=== PATIENT | female | born 1955 | race Caucasian/White ===

== ENCOUNTER 2018-10-09 13:35 | Emergency (ER) | payer OTHER ==
[2018-10-09 16:01] VITALS: BP 153/74
[2018-10-09] MEDS ORDERED: Albuterol/Ipratropium NEB.SOL* Albuterol 2.5 MG/Ipratropium 0.5 MG 3 ML INH ONE (16:12)
--- NOTE | 2018-10-09 16:19 | UC ---
Respiratory Complaint HPI - HPI Summary HPI Summary: Pt presents with c/o cough, wheezing and SOB with exertion. - History of Current Complaint Chief Complaint: UCGeneralIllness Stated Complaint: COUGH, SORE THROAT, FEVER Time Seen by Provider: 10/09/18 15:46 Hx Obtained From: Patient ?: No Onset/Duration: Gradual Onset, Lasting Days, Still Present Timing: Constant Severity Initially: Mild Severity Currently: Moderate Pain Intensity: 6 Character: Cough: Nonproductive Aggravating Factors: Exertion, Deep Breaths, Recumbent Position Alleviating Factors: Nothing Associated Signs And Symptoms: Positive: Wheezing, URI, Nasal Congestion - Risk Factors Pulmonary Embolism Risk Factors: Negative Cardiac Risk Factors: Hypertension, Diabetes Pseudomonas Risk Factors: Negative Tuberculosis Risk Factors: Diabetes - Allergies/Home Medications Allergies/Adverse Reactions: Allergies Allergy/AdvReac Type Severity Reaction Status Date / Time amoxicillin [From Augmentin] Allergy Hives Verified 10/09/18 15:58 canagliflozin [From Invokana] Allergy Pain Verified 10/09/18 15:58 clavulanic acid Allergy Hives Verified 10/09/18 15:58 [From Augmentin] Bjkkcht-Joq-Pgb Reductase Allergy Joint Pain Verified 10/09/18 15:57 Inhibitor Home Medications: Home Medications Ezetimibe 10 mg PO DAILY 10/09/18 [History Confirmed 10/09/18] Fenofibrate 48 mg PO DAILY 10/09/18 [History Confirmed 10/09/18] Insulin Glargine,Hum.rec.anlog [Lantus] 10/09/18 [History] Losartan TAB* [Cozaar TAB*] 50 g PO DAILY 10/09/18 [History Confirmed 10/09/18] PMH/Surg Hx/FS Hx/Imm Hx Previously Healthy: Yes Endocrine History: Diabetes Cardiovascular History: Cardiac Disease, Hypertension Respiratory History: Other - sleep apnea - Surgical History Surgical History: Yes Surgery Procedure, Year, and Place: GEE 2003. T&A. BILATERAL EAR TUBES - Family History Known Family History: Positive: Hypertension - Social History Occupation: Employed Full-time Lives: With Family Alcohol Use: Rare Substance Use Type: None Smoking Status (MU): Former Smoker Have You Smoked in the Last Year: No When Did the Patient Quit Smoking/Using Tobacco: 2003 - Immunization History Most Recent Influenza Vaccination: [id number] Review of Systems All Other Systems Reviewed And Are Negative: Yes Constitutional: Positive: Chills, Fatigue Skin: Positive: Negative Eyes: Positive: Negative ENT: Positive: Sinus Congestion Respiratory: Positive: Shortness Of Breath, Cough Cardiovascular: Positive: Negative Gastrointestinal: Positive: Negative Genitourinary: Positive: Negative Motor: Positive: Negative Neurovascular: Positive: Negative Musculoskeletal: Positive: Myalgia Neurological: Positive: Negative Psychological: Positive: Negative Is Patient Immunocompromised?: No Physical Exam Triage Information Reviewed: Yes Appearance: Ill-Appearing Vital Signs: Initial Vital Signs Temp 98.1 F 10/09/18 15:52 Pulse 62 10/09/18 15:52 Resp 21 10/09/18 15:52 BP 153/74 10/09/18 15:52 Pulse Ox 94 10/09/18 15:52 Vital Signs Reviewed: Yes Eye Exam: Normal ENT: Positive: Nasal congestion Dental Exam: Normal Neck exam: Normal Respiratory: Positive: Decreased breath sounds, Wheezing Cardiovascular Exam: Normal Musculoskeletal Exam: Normal Neurological Exam: Normal Psychological Exam: Normal Skin Exam: Normal UC Diagnostic Evaluation - Laboratory O2 Sat by Pulse Oximetry: 94 Respiratory Course/Dx - Differential Dx/Diagnosis Differential Diagnosis/HQI/PQRI: Bronchitis, Influenza Provider Diagnosis: Influenza A Discharge - Sign-Out/Discharge Documenting (check all that apply): Patient Departure All imaging exams completed and their final reports reviewed: No Studies - Discharge Plan Condition: Stable Disposition: HOME Prescriptions: Albuterol 2.5MG/3ML (0.083%)* [Ventolin 2.5 MG/3 ML NEB.KELLEE*] 2.5 mg INH Q4H PRN #1 box PRN Reason: Sob/Wheezing Benzonatate CAP* [Tessalon 100 MG CAP*] 200 mg PO Q8H PRN #30 cap PRN Reason: Cough Patient Education Materials: Influenza (ED) Forms: *Work Release Referrals: Marybeth Silver NP [Primary Care Provider] - If Needed - Billing Disposition and Condition Condition: STABLE Disposition: Home
[2018-10-09 16:21] LABS: Influenza A Molecular POSITIVE (Negative)
== END 2018-10-09 16:43 | disposition home or self-care (01) ==
LOC: UCCORT 13:35
DX: J10.1 Influenza due to other identified influenza virus with other respiratory manifestations (principal); E11.9 Type 2 diabetes mellitus without complications; I10 Essential (primary) hypertension; Z88.0 Allergy status to penicillin; Z88.8 Allergy status to other drugs, medicaments and biological substances; Z79.4 Long term (current) use of insulin; Z79.899 Other long term (current) drug therapy; Z87.891 Personal history of nicotine dependence
CPT/HCPCS: 99212; A9270-GY; G0463

== ENCOUNTER 2018-12-26 10:15 | Emergency (ER) | payer BC, OTHER ==
[2018-12-26 10:43] VITALS: BP 147/66
--- NOTE | 2018-12-26 10:52 | UC ---
General HPI - HPI Summary HPI Summary: manager facility notes reviewed -Bottom left side dental ache. Started Thursday. Not able to get into dentist. Feels swelling. Pleasant 63 yo female c/o progressive pain and swelling at and just below ( lingual) L lower 2nd premolar, since apprx Thursday, today is Thursday. Called Dentist office on Thursday, but was closed, plans to call tomorrow but wants to get started on abx sooner. Is diabetic, has home meter. Is scheduled for gastric bypass surgery on 13 Jan 2019. Currently without GI issues, has taken acetaminophen with some relief, ibuprofen helps better but GI challenges at times. GI ok, baseline constipation, but improves with activia. No fever / chills. No recent illness. No rash. Wears full dentures upper, no issues nor pain c/o. - History of Current Complaint Chief Complaint: UCDentalProblem Stated Complaint: DENTAL COMPLAINT Time Seen by Provider: 12/26/18 10:51 Hx Obtained From: Patient Pain Intensity: 6 - Allergy/Home Medications Allergies/Adverse Reactions: Allergies Allergy/AdvReac Type Severity Reaction Status Date / Time amoxicillin [From Augmentin] Allergy Hives Verified 12/26/18 10:37 canagliflozin [From Invokana] Allergy Pain Verified 12/26/18 10:37 clavulanic acid Allergy Hives Verified 12/26/18 10:37 [From Augmentin] Zjgkttg-Sdd-Nxr Reductase Allergy Joint Pain Verified 12/26/18 10:37 Inhibitor Home Medications: Home Medications Acetaminophen [Tylenol Extra Strength] 1,000 mg PO ONCE PRN 12/26/18 [History Confirmed 12/26/18] Ergocalciferol (Vitamin D2) [Vitamin D2] 1 tab PO WEEKLY 12/26/18 [History Confirmed 12/26/18] [place]-3 Fatty Acids/Fish Oil [Fish Oil 1200 mg] 1 cap PO DAILY 12/26/18 [ History Confirmed 12/26/18] metFORMIN* [Glucophage 1000 MG TAB *] 1,000 mg PO BID 12/26/18 [History Confirmed 12/26/18] PMH/Surg Hx/FS Hx/Imm Hx Previously Healthy: Yes - see below and see hpi - Surgical History Surgical History: Yes Surgery Procedure, Year, and Place: HYSTERECTOMY. T&A. EAR TUBES - Family History Known Family History: Positive: Hypertension - Social History Alcohol Use: None Substance Use Type: None Smoking Status (MU): Former Smoker Have You Smoked in the Last Year: No When Did the Patient Quit Smoking/Using Tobacco: 2004 - Immunization History Most Recent Influenza Vaccination: [id number] Review of Systems All Other Systems Reviewed And Are Negative: Yes Constitutional: Positive: Negative Skin: Positive: Other - see hpi Eyes: Positive: Negative ENT: Positive: Other - see hpi Respiratory: Positive: Negative Cardiovascular: Positive: Negative Gastrointestinal: Positive: Negative Genitourinary: Positive: Negative Motor: Positive: Negative Neurovascular: Positive: Negative Musculoskeletal: Positive: Negative Neurological: Positive: Negative Psychological: Positive: Negative Is Patient Immunocompromised?: No Physical Exam Triage Information Reviewed: Yes Appearance: Well-Appearing, Well-Nourished Vital Signs: Initial Vital Signs Temp 97.2 F 12/26/18 10:37 Pulse 53 12/26/18 10:37 Resp 17 12/26/18 10:37 BP 147/66 12/26/18 10:37 Pulse Ox 97 12/26/18 10:37 Vital Signs Reviewed: Yes Eye Exam: Normal ENT: Positive: TM dull, Other - see dental below, remainder oroph grossly benign. Upper denture in place. Dental Exam: Other - + keith and discoloration noted to 2nd lower premolar. there is some swelling not overly fluctuant lingual portion. Nontender buchal gum. There is scattered gingivitis in the affected tooth, and elsewhere. Tooth is particularly tender to light percussion. h/c not tested. Course/Dx - Course Course Of Treatment: Blood glucose fs this am 163mg / dl, per pt Reviewed meds / allergies / pmh Reviewed coa / tx plan with pt. Questions as posed answered to the best of my ability. Reviewed GI precautions, echo in light of abx (clindamycin). - Diagnoses Provider Diagnosis: Dental abscess, Gingivitis Discharge - Sign-Out/Discharge Documenting (check all that apply): Patient Departure All imaging exams completed and their final reports reviewed: No Studies - Discharge Plan Condition: Stable Disposition: HOME Prescriptions: Chlorhexidine MW 0.12% 473ML* [Peridex Mouth Wash 0.12%*] 15 ml .SEE ORDER DAILY WITH MEAL #1 btl Clindamycin HCl 300 mg PO Q8H #30 capsule Patient Education Materials: Dental Abscess (ED), Gingivitis (ED) Referrals: Marybeth Silver NP [Primary Care Provider] - Additional Instructions: Drink plenty of water. Try to avoid taking antibiotic on completely empty stomach, but not with full meal. Please follow up with your dentist in about one week. Sooner for worse or new problems. Eat yogurt and / or probiotic daily, especially while taking antibiotics. Check your blood glucose frequently, especially while you are dealing with an infection. - Billing Disposition and Condition Condition: STABLE Disposition: Home
== END 2018-12-26 11:23 | disposition home or self-care (01) ==
LOC: UCCORT 10:15
DX: K04.7 Periapical abscess without sinus (principal); K05.10 Chronic gingivitis, plaque induced; E11.9 Type 2 diabetes mellitus without complications; Z88.1 Allergy status to other antibiotic agents; Z88.0 Allergy status to penicillin; Z88.8 Allergy status to other drugs, medicaments and biological substances; Z87.891 Personal history of nicotine dependence
CPT/HCPCS: 99212; G0463

== ENCOUNTER 2019-07-08 08:20 | Emergency (ER) | payer BC ==
--- OUTSIDE RECORDS SUMMARY | 2019-07-08 08:30 | XMS REPORT | Summary of Care ---
:1955 Author Organization [facility] Address [address] [place] [address] Care Team Providers Name Role Phone Carrie Silver FAGOTER Primary Care Provider Encounter Details Date Type Department Care Team Description 06/29/2019 Hospital Encounter [facility] Clinical Pathology at [facility] [address] [place] [id number] Allergies Active Allergy Reactions Severity Noted Date Comments Amoxicillin-Pot Other (See Comments) Medium 06/19/2017 Blisters at bottom Clavulanate of feet Statins Other (See Comments) 12/05/2016 Myalgias per pt documented as of this encounter (statuses as of 06/30/2019) Medications Medication Sig Dispensed Refills Start Date End Date Status aspirin 81 MG tablet Take 81 mg by 0 Active mouth daily ezetimibe (ZETIA) 10 Take 1 tablet by 90 tablet 3 05/06/2019 Active MG tablet mouth daily 0 losartan (COZAAR) 50 Take 1 tablet by 180 tablet 3 05/06/2019 Active MG tabletIndications: mouth Two Times Hypertension Daily Indications: High Blood Pressure Disorder magnesium hydroxide Take 30 mLs by 360 mL 3 05/06/2019 Active (MILK OF MAGNESIA) mouth daily as 400 MG/5ML suspension needed for Constipation omeprazole (PRILOSEC) Take 1 capsule by 90 capsule 3 05/06/2019 Active 20 MG capsule mouth daily vitamin B-12 Take 0.5 tablets 90 tablet 3 05/06/2019 Active (CYANOCOBALAMIN) 100 by mouth daily MCG tablet vitamin D Take 1 capsule by 6 capsule 3 06/09/2019 Active (ERGOCALCIFEROL) mouth every 14 30043 units (fourteen) days capsuleIndications: Hypovitaminosis D documented as of this encounter (statuses as of 06/30/2019) Active Problems Problem Noted Date Family history of early CAD 05/06/2019 S/P bariatric surgery 02/01/2019 Overview: 01/13/19 Jerica n Y done no Hyperglycemia and lost 21 lbs in wt and 3 " in waist line Bradycardia on Bystolic marked -- adjusting dos e BP down. Pedal edema 07/30/2018 Statin intolerance 07/30/2018 Essential hypertension 06/19/2017 Overview: TLC discussed at length with patient and written instructions reviewed and provided to help lose at least at least 1 pound in weight per week. On Bystolic and Spironolactone. Poor compliance 06/19/2017 Overview: With TLC to lose weight and to take Lovaza for large capsule size Dyslipidemia 03/17/2017 Overview: Morbid obesity with dyslipidemia-- Robert TG's and low HDL-C. TLC discussed at length with patient and written instructions reviewed and provided to help lose at least at least 1 pound in weight per week. on feniofbrates Reported family history of early sudden deaths 03/17/2017 Overview: Father and relatives. Family history of aneurysm of blood vessel of brain 03/17/2017 Overview: Apparently there is such history in her blood relatives -- no definite confirmation by angio or scans forth coming Morbid obesity with BMI of 40.0-44.9, adult 03/17/2017 Overview: TLC discussed at length with patient and written instructions reviewed and provided to help lose at least at least 1 pound in weight per week. ILDIA (obstructive sleep apnea) 03/17/2017 Overview: Using CPAP Not using CPAP-- sleeping better without it , she indicated and hates that gadget ! Family history of brain aneurysm 03/10/2017 Pain of left thumb 02/15/2013 documented as of this encounter (statuses as of 06/30/2019) Resolved Problems Problem Noted Date Resolved Date Pre-operative cardiovascular examination 07/31/2017 02/01/2019 Overview: Pre colonoscopy cardiac evaluation. OK. IDDM (insulin dependent diabetes mellitus) 03/17/2017 05/06/2019 Overview: With +ve FH and morbid Obesity. documented as of this encounter (statuses as of 06/30/2019) Social History Tobacco Use Types Packs/Day Years Used Date Former Smoker Smokeless Tobacco: Never Used Alcohol Use Drinks/Week oz/Week Comments No Sex Assigned at Date Recorded Not on file Job Start Date Occupation Industry Not on file Not on file Not on file Travel History Travel Start Travel End No recent travel history available. documented as of this encounter Last Filed Vital Signs Not on filedocumented in this encounter Plan of Treatment Date Type Specialty Care Team Description 08/30/2019 Office Visit Cardiology Esperanza Hyman MD [address] [place] [address] [phone] Name Type Priority Associated Diagnoses Date/Time Vitamin B1 Lab Routine 06/29/2019 9:57 AM EST Name Type Priority Associated Diagnoses Order Schedule Vitamin B1 Lab Routine Once for 1 Occurrences starting 06/29/2019 until 06/29/2019 Health Maintenance Due Date Last Done Comments Hepatitis C Screening (B. 1955 [id number]) MMR Vaccines (1 of 1 - Standard 1958 series) Pneumococcal Vaccine: Pediatrics 1963 (0 to 5 Years) and At-Risk Patients (6 to 64 Years) (1 of 1 - PPSV23) Hepatitis B Vaccines (1 of 3 - 1976 Risk 3-dose series) Cervical Cancer Screening 5 years 1978 Breast Cancer Screening 2 years 2007 Colon Cancer Screening 10 yrs 2007 Zoster Vaccines (1 of 2) 2007 DTaP,Tdap,and Td Vaccines (2 - 05/28/2016 04/30/2016 Tdap) Influenza Vaccine 05/24/2019 Pneumococcal Vaccine: 65+ Years (1 2022 of 2 - PCV13) HIV Screening Completed 12/01/2011 HIB Vaccines Aged Out No longer eligible based on patient's age to complete this topic Hepatitis A Vaccines Aged Out No longer eligible based on patient's age to complete this topic IPV Vaccines Aged Out No longer eligible based on patient's age to complete this topic Varicella Vaccines Aged Out No longer eligible based on patient's age to complete this topic documented as of this encounter Procedures Procedure Name Priority Date/Time Associated Comments Diagnosis VITAMIN D 25 HYDROXY, Routine 06/29/2019 10:10 Results for this TOTAL AM EST procedure are in the results section. TOTAL FE BINDING Routine 06/29/2019 9:57 Results for this CAPACITY AM EST procedure are in the results section. CBC Routine 06/29/2019 9:57 Results for this AM EST procedure are in the results section. HEMOGLOBIN A1C Routine 06/29/2019 9:57 Results for this AM EST procedure are in the results section. FERRITIN LEVEL Routine 06/29/2019 9:57 Results for this AM EST procedure are in the results section. VITAMIN B12 Routine 06/29/2019 9:57 Results for this AM EST procedure are in the results section. LIPID PANEL Routine 06/29/2019 9:57 Results for this AM EST procedure are in the results section. COMPREHENSIVE Routine 06/29/2019 9:57 Results for this METABOLIC PANEL AM EST procedure are in the results section. documented in this encounter Results Vitamin D 25 Hydroxy, Total (06/29/2019 10:10 AM EST) Vitamin D 25 Hydroxy, 28 (L) >30 ng/mL [facility] TOTAL Clin Pathology Specimen Serum Performing Organization Address [facility]/Zipcode Phone Number [facility] CLINICAL PATHOLOGY [address] [place] [address] [facility] Clin [address] [place] [address] Pathology Hemoglobin A1c (06/29/2019 9:57 AM EST) Hemoglobin A1C 5.5 4.0 - 6.0 % [facility] Comment: Univ Clin (NOTE) Pathology <5.7% Average risk of diabetes(ADA) 5.7-6.4% Increased risk of diabetes(ADA) >/= 6.5% Diagnostic for diabetes(ADA) Estimated Avg 111 <126 mg/dL [facility] Glucose Univ Clin Pathology Specimen Whole Blood Performing Organization Address City/[facility] Phone Number [facility] CLINICAL PATHOLOGY [address] [place] [address] [phone] [facility] Clin [address] [place] [address] Pathology Iron and TIBC (06/29/2019 9:57 AM EST) Iron 76 37 - 145 ug/dl [facility] Clin Pathology Transferrin Serum 212 200 - 360 mg/dL [facility] Clin Pathology Total Fe Bind Cap 294 228 - 428 ug/dl [facility] Clin Pathology % Fe Saturation 25.9 20 - 55 % [facility] Clin Pathology Specimen Plasma Performing Organization Address [facility] Phone Number [facility] CLINICAL PATHOLOGY [address] [place] [address] [facility] Clin [address] [place] [address] Pathology Lipid panel (06/29/2019 9:57 AM EST) Cholesterol 187 <200 mg/dL [facility] Clin Pathology Triglyceride 111 <150 mg/dL [facility] Clin Pathology HDL Cholesterol 40 (L) >50 mg/dL [facility] Clin Pathology LDL Cholesterol 125 (H) <100 mg/dL [facility] Clin Pathology VLDL Cholesterol 22 16 - 42 mg/dl [facility] Clin Pathology Non HDL Cholesterol 147 (H) <130 mg/dL [facility] Clin Pathology Specimen Plasma Performing Organization Address [facility] Phone Number [facility] CLINICAL PATHOLOGY [address] [place] [address] [facility] Clin [address] [place] [address] Pathology Ferritin Level (06/29/2019 9:57 AM EST) Ferritin 264 (H) 13 - 150 ng/ml [facility] Clin Pathology Specimen Plasma Performing Organization Address [facility] Phone Number [facility] CLINICAL PATHOLOGY [address] [place] [address] [facility] Clin [address] [place] [phone] Pathology Comprehensive Metabolic Panel (06/29/2019 9:57 AM EST) Albumin 4.4 3.5 - 5.2 g/dL [facility] Clin Pathology Bilirubin, Total 0.7 <1.2 mg/dL [facility] Clin Pathology Calcium 10.1 8.8 - 10.2 mg/dL [facility] Clin Pathology Chloride 103 98 - 107 mmol/L [facility] Clin Pathology Creatinine 0.77 0.50 - 0.90 [facility] mg/dL Univ Clin Pathology Glucose 96 70 - 140 mg/dL [facility] Clin Pathology Alkaline Phosphatase 101 35 - 104 U/L [facility] Clin Pathology Potassium 4.5 3.4 - 5.1 mmol/L [facility] Clin Pathology Total Protein 6.6 6.4 - 8.3 g/dL [facility] Clin Pathology Sodium 141 136 - 145 mmol/L [facility] Clin Pathology AST/SGO 20 <32 U/L [facility] Clin Pathology Blood Urea Nitrogen 17 8 - 23 mg/dL [facility] Clin Pathology Osmolality, Angelo 293 275 - 300 [facility] mosm/kg Univ Clin Pathology BUN/Cre Ratio 22 [facility] Clin Pathology Bicarbonate 28 22 - 29 mmol/L [facility] Clin Pathology ALT/SGP 24 <33 U/L [facility] Clin Pathology Anion Gap 10 8 - 15 mmol/L [facility] Clin Pathology A/G Ratio 2.0 [facility] Clin Pathology GFR Non 88 >60 [facility] Greek 2008 CDK-EPI mL/min/1.73m2 Univ Clin Pathology GFR >90 >60 [facility] 2009 CKD-EPI mL/min/1.73m2 [facility] Clin Pathology Specimen Plasma Performing Organization Address City/State/[facility] Phone Number [facility] CLINICAL PATHOLOGY [address] [place] [address] [facility] Clin [address] [place] [address] Pathology CBC (06/29/2019 9:57 AM EST) White Blood Cell 6.4 4 - 10 10*3/uL [facility] Clin Pathology Red Blood Cell 4.22 4.1 - 5.3 [facility] 10*6/uL [facility] Clin Pathology Hemoglobin 13.7 11.5 - 15.5 [facility] g/dL [facility] Clin Pathology Hematocrit 41.4 36 - 45 % [facility] Clin Pathology Mean Cell Volume 98.1 (H) 80 - 96 fL [facility] Clin Pathology Mean Cell Hemoglobin 32.5 27 - 33 pg [facility] Clin Pathology Mean Cell Hgb Conc 33.1 32.0 - 36.0 [facility] g/dL Univ Clin Pathology Red Cell Dist Width 12.9 11.5 - 14.5 % [facility] Clin Pathology Platelet Count 234 150 - 400 [facility] 10*3/uL Univ Clin Pathology Specimen EDTA Whole Blood Performing Organization Address City/[facility]/Zipcode Phone Number [facility] CLINICAL PATHOLOGY [address] [place] [address] [phone] [facility] Clin [address] [place] [address] Pathology Vitamin B12 (06/29/2019 9:57 AM EST) Vitamin B12 715 211 - 946 pg/ml [facility] Clin Pathology Specimen Plasma Performing Organization Address City/[facility] Phone Number [facility] CLINICAL PATHOLOGY [address] [place], [place] [id number] [phone] [facility] Clin [address] [place] [address] Pathology documented in this encounter
--- OUTSIDE RECORDS SUMMARY | 2019-07-08 08:30 | XMS REPORT | Continuity of Care Document ---
:1955 External Reference #:[id number] Author Name Gema Whitten MD Address [address] [place] [address] Problems Active Problems Provider Date Benign essential hypertension Edelmira Kim M.D. Onset: 05/22/2016 Pure hypercholesterolemia Edelmira Kim M.D. Onset: 05/22/2016 Social History Type Date Description Comments Sex Unknown Cigarette Use Pack Years - 20 Tobacco Use Start: Unknown End: Former Cigarette Smoker quit 2003 Unknown 1 Pack Daily ETOH Use Denies alcohol use Tobacco Use Start: Unknown End: Patient is a former Unknown smoker Recreational Drug Use Denies Drug Use Exercise Type/Frequency Exercises sporadically will restart water aroebics Allergies, Adverse Reactions, Alerts Active Allergies Reaction Severity Comments Date Statins MUSCLE PAIN AND WEAKNESS 12/25/2015 Clavulanate blisters 04/13/2017 Augmentin 02/26/2018 Inactive Allergies NKDA 09/24/2015 Medications Active Medications SIG Qnty Indications Ordering Date Provider Losartan Potassium Take 1 Tablet By 180tabs I10 Gema Whitten, 06/02/2018 Mouth bid 50mg Tablets Cpap Cpap 10jnD1G with 1units G47.33 David Kent, 10/15/2016 Device modem, heated humidity and related supplies, ashley 99mos Miralax 17 grams in 8 oz of Unknown Powder fluid every day as needed constipation Fusion Plus 1 by mouth qd-otc Unknown Capsules History Medications Bystolic 1 by mouth every Carrie Silver NP 02/07/2019 - 5mg Tablets other day 03/01/2019 Immunizations CPT Code Status Date Vaccine Lot # [id number] Given 06/06/2019 Influenza Vac, Quadrivalent, Split, 0.5mL Dosage, Im Use 37025 Given 10/26/2018 Pneumococcal 23 Immunization Adult Or [id number] Immunosuppressed Patient 11280 Given 07/01/2018 Influenza Vac, Quadrivalent, Split, 0.5mL Dosage, Im Use 33264 Given 05/24/2016 Afluria Or Fluvirin Flu Vac Intramuscular 06357 Given 04/30/2016 Immunization Td 7 Yrs Or Older 50234 Given 06/07/2015 Influenza Vac, Quadrivalent, Split, 0.5mL Dosage, [id number] Im Use 88152 Refused 02/07/2019 Shingrix (Shingles) Zoster Vaccine HZV, Recombinant , Subunit, Adj Vital Signs Date Vital Result Comment 07/01/2019 8:19am Weight 195.00 lb Heart Rate 60 /min BP Systolic 132 mmHg BP Diastolic 72 mmHg Height 63.5 inches 5'3.50" BMI (Body Mass Index) 34.0 kg/m2 05/27/2019 7:28am Body Temperature 97.4 F Weight 204.00 lb Heart Rate 62 /min BP Systolic 128 mmHg BP Diastolic 76 mmHg Height 63.5 inches 5'3.50" O2 % BldC Oximetry 98 % BMI (Body Mass Index) 35.6 kg/m2 Results Test Acquired Date Facility Test Result H/L Range Note Laboratory test finding 01/06/2019 [facility] 0.91 uIU/mL 0.35-4.94 Procedures Date Code Description Status 01/06/2019 26144 Electrocardiogram Complete Completed 11/12/2018 079273101 Bone Mineral Density Test Completed 02/06/2018 [id number] Mammogram Completed 08/27/2017 [id number] Colonoscopy Completed 10/11/2016 [id number] Mammogram Completed 11/29/2008 [id number] Colonoscopy Completed Medical Devices Description No Information Available Encounters Type Date Location Provider Dx Diagnosis Office Visit 05/27/2019 Jose F Raymond Lori A, G47.33 Obstructive sleep 7:20a [employer] SU[employer] OFFICER apnea (adult) (pediatric) B37.0 Candidal stomatitis J32.9 Chronic sinusitis, unspecified H66.93 Otitis media, unspecified, bilateral J45.991 Cough variant asthma Office Visit 03/01/2019 8:15a Gema Paredes MD E11.40 Type 2 diabetes mellitus with diabetic neuropathy, unsp E78.00 Pure hypercholesterolemia, unspecified I10 Essential (primary) hypertension E66.9 Obesity, unspecified Z68.39 Body mass index (BMI) 39.0-39.9, adult Office Visit 02/07/2019 3:00p Carrie Mcgrath NP E66.01 Morbid ( severe) obesity due to excess calories I10 Essential (primary) hypertension Z68.41 Body mass index (BMI) 40.0-44.9, adult Office Visit 01/11/2019 10:00a Gema Paredes MD E11.40 Type 2 diabetes mellitus with diabetic neuropathy, unsp E78.00 Pure hypercholesterolemia, unspecified I10 Essential (primary) hypertension E66.01 Morbid (severe) obesity due to excess calories Z68.41 Body mass index (BMI) 40.0-44.9, adult Office Visit 01/06/2019 2:00p Carrie Mcgrath NP E66.01 Morbid ( severe) obesity due to excess calories Z68.42 Body mass index (BMI) 45.0-49.9, adult Z01.818 Encounter for other preprocedural examination K02.9 Dental caries, unspecified Assessments Date Code Description Provider 07/01/2019 E11.40 Type 2 diabetes mellitus with diabetic Gema Whitten MD neuropathy, unspecifi 07/01/2019 E78.00 Pure hypercholesterolemia, unspecified Gema Whitten MD 07/01/2019 I10 Essential (primary) hypertension Gema Whitten MD 07/01/2019 E66.9 Obesity, unspecified Gema Whitten MD 07/01/2019 Z68.34 Body mass index (BMI) 34.0-34.9, adult Gema Whitten MD 05/27/2019 G47.33 Obstructive sleep apnea syndrome Lolis Kohler [employer] C[employer]ER SUPPORT OFFICER 05/27/2019 B37.0 Candidal stomatitis Lolis Kohler NP 05/27/2019 J32.9 Chronic sinusitis, unspecified Lolis Kohler I[employer] C[employer]ER SUPPORT OFFICER 05/27/2019 H66.93 Otitis media, unspecified, bilateral Lolis Kohler, I[employer] C[employer]ER SUPPORT OFFICER 05/27/2019 J45.991 Cough variant asthma Lolis Kohler I[employer] CUSTOMER SUPPORT OFFICER 03/01/2019 E11.40 Type 2 diabetes mellitus with diabetic Gema Whitten MD neuropathy, unspecifi 03/01/2019 E78.00 Pure hypercholesterolemia, unspecified Gema Whitten MD 03/01/2019 I10 Essential (primary) hypertension Gema Whitten MD 03/01/2019 E66.9 Obesity, unspecified Gema Whitten MD 03/01/2019 Z68.39 Body mass index (BMI) 39.0-39.9, adult Gema Whitten MD 02/07/2019 E66.01 Morbid (severe) obesity due to excess Carrie Silver NP calories 02/07/2019 I10 Essential (primary) hypertension Carrie Silver NP 02/07/2019 Z68.41 Body mass index (BMI) 40.0-44.9, adult Carrie Silver NP 01/11/2019 E11.40 Type 2 diabetes mellitus with diabetic Gema Whitten MD neuropathy, unspecifi 01/11/2019 E78.00 Pure hypercholesterolemia, unspecGema Peguero MD 01/11/2019 I10 Essential (primary) hypertension Gema Whitten MD 01/11/2019 E66.01 Morbid (severe) obesity due to excess Gema Whitten MD calories 01/11/2019 Z68.41 Body mass index (BMI) 40.0-44.9, adult Gema Whitten MD 01/06/2019 E66.01 Morbid (severe) obesity due to excess Carrie Silver NP calories 01/06/2019 E78.00 Pure hypercholesterolemia, unspecified [facility] 01/06/2019 Z68.42 Body mass index (BMI) 45.0-49.9, adult Carrie Silver NP 01/06/2019 Z01.818 Encounter for other preprocedural examination Carrie Silver NP 01/06/2019 K02.9 Dental caries, unspecified Carrie Silver NP 01/06/2019 Z01.818 Encounter for other preprocedural examination [facility] Plan of Treatment Future Appointment(s):06/01/2020 7:20 am - Lolis Kohler I[employer] CUST[employer]ER SUPPORT OFFICER at [facility] MD07/01/2019 - Gema Whitten MDE11.40 Type 2 diabetes mellitus with diabetic neuropathy, unspecifiComments:Patient has done extremely well since I bariatric surgery. She has lost 69 pounds altogether and has been able to come off of all her diabetic medications. Her HbA1c is in 5 range. She is continuingto watch her diet and has been exercising with water aerobics. I have encouraged her to continue todo so. Remain off of all the medications in if she gains weight. Again, she might have to restart the medicine. Continue to monitor blood sugars periodically. She can follow up with PCP and if needarises in the future. I'll be happy to see her.E78.00 Pure hypercholesterolemia, unspecifiedComments:Patient also has been off of cholesterol medicine. In the past, could not tolerate statins, but wastreated with Zetia now her LDL is within normal limits. Goal of LDL was discussed with her.I10 Essential (primary) hypertensionComments:BP mildly high, will cont current Rx and check BP qwk and call me with results. Eliminate salt from diet.E66.9 Obesity, pnrurycieqsB80.34 Body mass index (BMI) 34.0-34.9, adultComments:5A's for Obesity Counseling1. ASSESS: Patient presents with a BMI of 34.0, would like to discuss weight loss options.2. ADVISE: Discussed senior living complications of obesity in particular increased riskfor development of diabetes and heat disease as well as the many health benefits that come with a healthy BMI.3. AGREE: Goal is 1 pound or better per week weight loss. The patient understands and agrees to the plan outlined today.4. ASSIST: Reduce caloric intake, reduce proportion of carbohydrates indiet, establish daily exercise pattern, keep food log.5. ARRANGE: Follow up scheduled in PCP's office to assess and adjust treatment plan if needed.Time spent counseling the patient on obesity is 15 minutes. Obesity Screening Completed (G0447) Functional Status Description No Information Available Mental Status Description No Information Available Referrals Refer to Reason for Referral Status Appt Date Podiatry Closed 06/09/2019 Tracking
--- OUTSIDE RECORDS SUMMARY | 2019-07-08 08:30 | XMS REPORT | Continuity of Care Document ---
:1955 External Reference #:[id number] Author Name Lolis Kohler NP (transmitted by agent of provider David Kent) Address [address] [place] [address] Problems Active Problems Provider Date Benign essential [...] 06/02/2018 Mouth bid 50mg Tablets Cpap Cpap 89szD3T with 1units G47.33 David Kent, 10/15/2016 Device modem, heated humidity and related supplies, ashley 99mos Miralax 17 grams in 8 oz of Unknown Powder fluid every day as needed constipation Flintstones 2 by mouth once a Unknown Complete day occasionally 60mg Chewtabs Vitamin B12 1 by mouth every day Unknown 3000mcg Tablets Sub History Medications Bystolic 1 by mouth every Carrie Silver NP 02/07/2019 - 5mg Tablets other day 03/01/2019 Immunizations CPT Code Status Date Vaccine Lot # [id number] Given 10/26/2018 Pneumococcal 23 Immunization Adult Or [id number] Immunosuppressed Patient 83969 Given 07/01/2018 Influenza Vac, Quadrivalent, Split, 0.5mL Dosage, [place] Use 50031 Given 05/24/2016 Afluria Or Fluvirin Flu Vac Intramuscular 74194 Given 04/30/2016 Immunization Td 7 Yrs Or Older 77453 Given 06/07/2015 Influenza Vac, Quadrivalent, Split, 0.5mL Dosage, [id number] Im Use 37213 Refused 02/07/2019 Shingrix (Shingles) Zoster Vaccine HZV, Recombinant , Subunit, Adj Vital Signs Date Vital Result Comment 05/27/2019 7:28am Body Temperature 97.4 F Weight 204.00 lb Heart Rate 62 /min BP Systolic 128 mmHg BP Diastolic 76 mmHg Height 63.5 inches 5'3.50" O2 % BldC Oximetry 98 % BMI (Body Mass Index) 35.6 kg/m2 03/01/2019 8:09am Weight 225.00 lb Heart Rate 50 /min BP Systolic 128 mmHg BP Diastolic 70 mmHg Height 63.5 inches 5'3.50" BMI (Body Mass Index) 39.2 kg/m2 Results Test Date Facility Test Result H/L Range Note Laboratory test finding 01/06/2019 [facility] 0.91 uIU/mL 0.35-4.94 Procedures Date Code Description Status 01/06/2019 93844 Electrocardiogram Complete Completed 11/12/2018 [id number] Bone Mineral Density Test Completed 02/06/2018 [id number] Mammogram Completed 08/27/2017 [id number] Colonoscopy Completed 10/11/2016 [id number] Mammogram Completed 11/29/2008 [id number] Colonoscopy Completed Medical Devices Description No Information Available Encounters Type Date Location Provider Dx Diagnosis Office Visit 03/01/2019 Gema Paredes MD E11.40 Type 2 diabetes 8:15a mellitus with diabetic neuropathy, unsp E78.00 Pure [...] caries, unspecified Assessments Date Code Description Provider 05/27/2019 G47.33 Obstructive sleep apnea syndrome Lolis Kohler NP 05/27/2019 B37.0 Candidal stomatitis Lolis Kohler NP 05/27/2019 J32.9 Chronic sinusitis, unspecified Lolis Kohler, ELECTRONIC DEVELOPMENT TECHNICIAN 05/27/2019 H66.93 Otitis media, unspecified, bilateral Lolis Kohler ELECTRONIC DEVELOPMENT TECHNICIAN 05/27/2019 J45.991 Cough variant asthma Lolis Kohler NP 03/01/2019 E11.40 Type 2 diabetes mellitus with [...] MD neuropathy, unspecifi 01/11/2019 E78.00 Pure hypercholesterolemia, unspecified Gema Whitten MD 01/11/2019 I10 Essential (primary) hypertension Gema Whitten MD 01/11/2019 E66.01 Morbid (severe) obesity due to excess Gema Whitten MD calories 01/11/2019 Z68.41 Body mass index (BMI) 40.0-44.9, adult Gema Whitten MD 01/06/2019 E66.01 Morbid (severe) obesity due to excess Carrie Silver NP calories 01/06/2019 E78.00 Pure hypercholesterolemia, unspecified [facility] 01/06/2019 Z68.42 Body mass index (BMI) 45.0-49.9, adult Carrie Silver NP 01/06/2019 Z01.818 Encounter for other preprocedural examination Carrie Silver NP 01/06/2019 K02.9 Dental caries, unspecified Carrie Silver NP 01/06/2019 Z01.818 Encounter for other preprocedural examination [facility] Plan of Treatment Future Appointment(s):06/01/2020 7:20 am - Lolis Kohler NP at [facility] Kent MD07/01/2019 8:15 am - Gema Whitten MD at [id number]/27/2019 - Lolis Kohler NPG47.33 Obstructive sleep apnea syndromeComments:The patient has not tolerated her full face mask and is going to try a nasal mask with a chin strap.The patient has lost over 60 pounds after Braiatric surgery and is trying to lose over 100 pounds. The patient is willing to have another sleep study when at goal weight. Will follow.B37.0 Candidal stomatitisComments:No thrush at tis time.J32.9 Chronic sinusitis, unspecifiedComments:The MRI showed mild mucosal disease ethmoid and sphenoid. No clinical sinus symptoms. Patient is followed by Dr. Haddad.H66.93 Otitis media, unspecified, bilateralComments:Left ear s/p tympanoplasty and removal of left ear polyp and right with remaining tube in place. Following with Dr. Haddad.J45.991 Cough variant asthmaComments: The patient is now followed by pulmonology.No further cough. Functional Status Description No Information Available Mental Status Description No Information Available Referrals Refer to Reason for Referral Status Appt Date Podiatry Scheduled 06/09/2019 Tracking
[2019-07-08 08:58] VITALS: BP 131/58
--- NOTE | 2019-07-08 10:00 | UC ---
Hand/Wrist HPI - HPI Summary HPI Summary: 64 y/o female presents to the urgent care c/o redness on the lateral side of the left middle finger nail w/ mild swelling and painful at touch for the past 2 days. Pt reports she got a hangnail on Thursday07/06/2019 and the next day her finger was red, swollen and has a streak running up her hand. Pain is 5/ 10 at touch and denies Hx of MRSA and she can move her finger w/o any difficulty. Pt denies fever, numbness or tingling sensation over the left hand, SOB, chest pain, abdominal pain,N/V/d. - History Of Current Complaint Chief Complaint: UCUpperExtremity Stated Complaint: L MIDDLE FINGER COMP Time Seen by Provider: 07/08/19 10:00 Hx Obtained From: Patient Onset/Duration: Gradual Onset, Lasting Days - 2 days, Still Present Severity Initially: Mild Severity Currently: Moderate Pain Intensity: 5 Pain Scale Used: 0-10 Numeric Character Of Pain: Sharp Aggravating Factor(s): Pulling, Other - touch Alleviating Factor(s): Rest, Heat Associated Signs And Symptoms: Positive: Swelling, Redness. Negative: Bruising , Fever, Weakness, Numbness/Tingling Related History: Dominant Hand Right - Allergies/Home Medications Allergies/Adverse Reactions: Allergies Allergy/AdvReac Type Severity Reaction Status Date / Time amoxicillin [From Augmentin] Allergy Hives Verified 07/10/19 07:55 canagliflozin [From Invokana] Allergy Pain Verified 07/10/19 07:55 clavulanic acid Allergy Hives Verified 07/10/19 07:55 [From Augmentin] Fzdrehd-Tbj-Dma Reductase Allergy Joint Pain Verified 07/10/19 07:55 Inhibitor PMH/Surg Hx/FS Hx/Imm Hx Previously Healthy: Yes Endocrine History: Diabetes - diet control, Dyslipidemia - diet control - Surgical History Surgical History: Yes Surgery Procedure, Year, and Place: HYSTERECTOMY. T&A. EAR TUBES. bariatric surgery 01/09 - Family History Known Family History: Positive: Cardiac Disease, Hypertension - Social History Occupation: Employed Full-time Lives: With Family Alcohol Use: None Substance Use Type: None Smoking Status (MU): Former Smoker Have You Smoked in the Last Year: No When Did the Patient Quit Smoking/Using Tobacco: 2003 - Immunization History Most Recent Influenza Vaccination: 6908-0837 Review of Systems All Other Systems Reviewed And Are Negative: Yes Constitutional: Positive: Negative Skin: Positive: Rash - left middle finger infected w/ redness, swelling and pain Eyes: Positive: Negative ENT: Positive: Negative Respiratory: Positive: Negative Cardiovascular: Positive: Negative Gastrointestinal: Positive: Negative Genitourinary: Positive: Negative Motor: Positive: Negative Neurovascular: Positive: Negative Musculoskeletal: Positive: Negative Neurological: Positive: Negative Psychological: Positive: Negative Is Patient Immunocompromised?: No Physical Exam - Summary Physical Exam Summary: Vital Signs Reviewed: Yes General: well developed, well nourished female sitting in the examining table w/ o any apparent distress Eye Exam: Normal Eyes: Positive: Conjunctiva Clear - PERRLA, EOMI, fundi grossly normal ENT: Positive: Normal ENT inspection, Hearing grossly normal, Pharynx normal, TMs normal Neck: Positive: Supple, Nontender, No Lymphadenopathy Respiratory: Positive: Chest non-tender, Lungs clear, Normal breath sounds, No respiratory distress Cardiovascular: Positive: RRR, No Murmur, Pulses Normal, Brisk Capillary Refill Abdomen Description: Positive: Nontender, No Organomegaly, Soft. Negative: CVA Tenderness (R), CVA Tenderness (L) Bowel Sounds: Positive: Present Musculoskeletal: Positive: Strength Intact, ROM Intact, No Edema Neurological: Positive: Alert, Muscle Tone Normal Psychological Exam: Normal Skin: Positive: LF # 3 phalanx near the medial aspect of the nail with a discrete erythematous pustule that is indurated and fluctuant, tender to palpation, swollen, and warm to touch. FROM of phalanx, sensation is intact, capillary refill WNL, reflexes WNL Triage Information Reviewed: Yes Vital Signs: Initial Vital Signs Temp 97.8 F 07/08/19 08:55 Pulse 52 07/08/19 08:55 Resp 14 07/08/19 08:55 BP 131/58 07/08/19 08:55 Pulse Ox 100 07/08/19 08:55 Hand/Wrist Course/Dx - Course Course Of Treatment: 64 y/o female presents to the urgent care c/o redness on the lateral side of the left middle finger nail w/ mild swelling and painful at touch for the past 2 days. Pt reports she got a hangnail on Thursday07/06/2019 and the next day her finger was red, swollen and has a streak running up her hand. Pain is 5/ 10 at touch and denies Hx of MRSA and she can move her finger w/o any difficulty. Pt denies fever, numbness or tingling sensation over the left hand, SOB, chest pain, abdominal pain,N/V/d. Hx obtained. Pt w/ a left middle finger paronychia on examination. At this moment there is not need for drainage. No Hx of MRSA. Pt Rx Keflex PO and Bacitracin oint advised and advised to soak her finger in warm water w/ [place] as directed below. Advised to take Motrin for pain and swelling. D/C instructions explained. Father and Pt advised if not improvement of symptoms to return to the urgent care or PCP for further management. PT understood and agreed w/ plan of care. - Differential Dx/Diagnosis Differential Diagnosis/HQI/PQRI: Cellulitis, Paronychia, Puncture Wound, Subungual Hematoma, Other - MRSA Provider Diagnosis: Paronychia of left middle finger Discharge ED - Sign-Out/Discharge Documenting (check all that apply): Patient Departure - D/C home All imaging exams completed and their final reports reviewed: No Studies - Discharge Plan Condition: Stable Disposition: HOME Prescriptions: Aluminum Sulf/Ca Acetate PABLO* [[place] PABLO*] 1 applic TOPICAL DAILY #1 pablo Bacitracin OINTMENT* 1 applic TOPICAL BID #1 tube Patient Education Materials: Paronychia (ED) Referrals: Marybeth Silevr, COIL WINDING SUPERVISOR [Primary Care Provider] - 2 Days Additional Instructions: 1-Please take full course of antibiotic to avoid resistance. Keep wound clean and dry with a sterile dressing. Apply bacitracin topical as directed 2-. Take Tylenol PO q6-8hrs prn for pain or swelling. 3-If you develop fever or redness despite antibiotic please go to the ER immediately or return to the Urgent care. - Billing Disposition and Condition Condition: STABLE Disposition: Home - Attestation Statements Provider Attestation: This patient was not seen by me. I was available for consult Chart reviewed [facility]
== END 2019-07-08 10:27 | disposition home or self-care (01) ==
LOC: UCCORT 08:20
DX: L03.012 Cellulitis of left finger (principal); E11.9 Type 2 diabetes mellitus without complications; Z87.891 Personal history of nicotine dependence; Z88.8 Allergy status to other drugs, medicaments and biological substances; Z88.0 Allergy status to penicillin
CPT/HCPCS: 99212; G0463

== ENCOUNTER 2019-07-10 07:44 | Emergency (ER) | payer BC ==
[2019-07-10 08:02] VITALS: BP 123/66
[2019-07-10] MEDS ORDERED: Lidocaine 1% MPF* 2 ML VIAL INJ ONE (08:13)
--- NOTE | 2019-07-10 08:47 | UC ---
Skin Complaint HPI - HPI Summary HPI Summary: Pt presents with c/o worsening pain, swelling, redness of paronychia on left third finger. Pt was seen here and given ceph qid and pt has been soaking finger in warm warm and epsom salts with no improvement of symptoms. - History of Current Complaint Chief Complaint: UCSkin Time Seen by Provider: 07/10/19 08:05 Stated Complaint: LT MIDDLE FINGER RECHECK Hx Obtained From: Patient ?: No Onset/Duration: Gradual Onset, Lasting Days, Worse Since - onset Skin Exposure Onset/Duration: Days Ago Timing: Constant Onset Severity: Mild Current Severity: Moderate Pain Intensity: 5 Location: Discrete - left distal third finger Character: Swelling, Pain, Redness, Painful Aggravating Factor(s): Touch Alleviating Factor(s): Nothing Associated Signs & Symptoms: Positive: Tenderness, Red Streaks - Allergy/Home Medications Allergies/Adverse Reactions: Allergies Allergy/AdvReac Type Severity Reaction Status Date / Time amoxicillin [From Augmentin] Allergy Hives Verified 07/10/19 07:55 canagliflozin [From Invokana] Allergy Pain Verified 07/10/19 07:55 clavulanic acid Allergy Hives Verified 07/10/19 07:55 [From Augmentin] Iqmxylq-Uzy-Zph Reductase Allergy Joint Pain Verified 07/10/19 07:55 Inhibitor PMH/Surg Hx/FS Hx/Imm Hx Previously Healthy: Yes - Surgical History Surgical History: Yes Surgery Procedure, Year, and Place: HYSTERECTOMY. T&A. EAR TUBES. bariatric surgery 01/09 - Family History Known Family History: Positive: Hypertension - Social History Occupation: Employed Full-time Lives: With Family Alcohol Use: None Substance Use Type: None Smoking Status (MU): Former Smoker Have You Smoked in the Last Year: No When Did the Patient Quit Smoking/Using Tobacco: 2003 - Immunization History Most Recent Influenza Vaccination: 1034-2403 Vaccination Up to Date: Yes Review of Systems All Other Systems Reviewed And Are Negative: Yes Constitutional: Positive: Negative Skin: Positive: Other - swelling, erythema, and tenderness distal left 3rd finger Eyes: Positive: Negative ENT: Positive: Negative Respiratory: Positive: Negative Cardiovascular: Positive: Negative Gastrointestinal: Positive: Negative Genitourinary: Positive: Negative Motor: Positive: Negative Neurovascular: Positive: Negative Musculoskeletal: Positive: Edema Neurological: Positive: Negative Psychological: Positive: Negative Is Patient Immunocompromised?: No Physical Exam Triage Information Reviewed: Yes Appearance: Pain Distress - with PE Vital Signs: Initial Vital Signs Temp 97.6 F 07/10/19 07:56 Pulse 52 07/10/19 07:56 Resp 17 07/10/19 07:56 BP 123/66 07/10/19 07:56 Pulse Ox 100 07/10/19 07:56 Vital Signs Reviewed: Yes Eye Exam: Normal ENT Exam: Normal Dental Exam: Normal Neck exam: Normal Respiratory: Positive: No respiratory distress Musculoskeletal Exam: Normal Neurological Exam: Normal Psychological Exam: Normal Skin Exam: Other - erythematous distal left third finger Procedures - Incision and Drainage Left Finger Dorsal Site: Incision and drainage of paronychia left third finger Course/Dx - Differential Diagnoses - Skin Complaint Differential Diagnoses: Abscess - Diagnoses Provider Diagnosis: Paronychia of left middle finger Discharge ED - Sign-Out/Discharge Documenting (check all that apply): Patient Departure All imaging exams completed and their final reports reviewed: No Studies - Discharge Plan Condition: Stable Disposition: HOME Prescriptions: DOXYcycline CAP(*) [DOXYcycline 100MG CAP(*)] 100 mg PO Q12H #14 cap Patient Education Materials: Paronychia (ED) Referrals: Marybeth Silver NP [Primary Care Provider] - If Needed - Billing Disposition and Condition Condition: STABLE Disposition: Home
== END 2019-07-10 09:01 | disposition home or self-care (01) ==
LOC: UCCORT 07:44
DX: L03.012 Cellulitis of left finger (principal); Z88.0 Allergy status to penicillin; Z88.1 Allergy status to other antibiotic agents; Z88.8 Allergy status to other drugs, medicaments and biological substances; Z87.891 Personal history of nicotine dependence
CPT/HCPCS: 10060; 99212; G0463